=== PATIENT | female | born 1990 | race Caucasian/White ===

== ENCOUNTER 2019-12-05 10:27 | Outpatient (RCR) | payer OTHER, SELFPAY ==
[2019-12-05 10:40] VITALS: BP 115/64; PULSE 66; RESP 16; TEMP 36.5; O2SAT 100
== END 2020-03-04 23:59 | disposition home or self-care (01) ==
LOC: ANHVASCINF 10:27
PROVIDERS: Visit Provider Internal Medicine Infectious Disease
DX: M46.28 Osteomyelitis of vertebra, sacral and sacrococcygeal region (principal)
CPT/HCPCS: 36569; 96365; C1751; J1335